=== PATIENT | female | born 1995 | race African-American/Black ===

== ENCOUNTER 2016-12-18 11:21 | Emergency (ER) | payer SELFPAY ==
[~2016-12-18] VITALS: Ht 154.9 cm; Wt 90.0 kg
[~2016-12-18 11:21] MED LIST: CALNTAB PO; FERR325T PO; NORG1TAB28 PO
[2016-12-18 11:23] VITALS: BP 128/74; PULSE 76; RESP 20; TEMP 98.7; O2SAT 98
--- NOTE | 2016-12-18 11:30 | PD ---
Physical Exam Date Seen by Provider: December 18, 2016 Time Seen by Provider: 11:28 Narrative 21 yobf here with c/o good for 1 week. cold symptoms as well. pos for f/c/good/ body aches, n/v/ stool with blood. VSS wating for bed asignment Data Data Last Documented VS Vital Signs Date Time Temp Pulse Resp B/P Pulse Ox O2 Delivery O2 Flow Rate FiO2 12/18/16 11:23 98.7 76 20 128/74 98 Room Air [facility] Medical Record Reviewed: No Supervised Visit with GREG: Rah Latif December 18, 2016 11:30
--- NOTE | 2016-12-18 12:01 | PD ---
HPI Chief Complaint: GI Complaint Time Seen by Provider: 12:00 Travel History International Travel<30 days: No Contact w/Intl Traveler<30days: No Traveled to known affect area: No History of Present Illness HPI 21-year-old female came to the emergency room with history of headache, nausea and vomiting and rectal pain with some dark colored blood in her stool since past 4 days. Patient says all these symptoms are new to her. She is also been having some fever and chills. Early this morning her temperature was 101.5. 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 She has been nauseous but no vomiting. Vital signs were otherwise stable. She is otherwise a healthy person. 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 REPLACED BY [facility] Past Medical History Narrative Medical List of her past medical, surgical, social and family history was reviewed from the nursing note. Diminished Hearing: No Deep Vein Thrombosis: Yes (hx ) Immunizations Current: Yes LMP: 12/13/16 : 3 Para: 1 Ectopic : Yes Dilation and Curettage (D&C): Yes Past Surgical History Section: Yes (x1) Social History Alcohol Use: No Tobacco Use: No Substance Use: No (marijuana) Allergies-Medications (Allergen,Severity, Reaction): Coded Allergies: No Known Allergies (Unverified , 07/17/16) Comments No known drug allergies. Reported Meds & Prescriptions Reported Meds & Active Scripts Active Ortho Tri-Cyclen Lo (Norgestimate-Ethinyl Estradiol) 0.18/0.215/0.25 mg-25 Mcg Tab 1 Tab PO DAILY Ferrous Sulfate 325 Mg Tab 325 Mg PO DAILY Calna ( Vitamin) 1 Tab Tab 1 Tab PO DAILY Narrative Medication List of her home medications reviewed from the nursing note. Review of Systems Except as stated in HPI: all other systems reviewed are Neg Physical Exam Narrative GENERAL: Awake, alert, obese, mild distress SKIN: Focused skin assessment warm/dry. HEAD: Atraumatic. Normocephalic. EYES: Pupils equal and round. No scleral icterus. No injection or drainage. ENT: No nasal bleeding or discharge. Mucous membranes pink and moist. NECK: Trachea midline. No JVD. CARDIOVASCULAR: Regular rate and rhythm. No murmur appreciated. RESPIRATORY: No accessory muscle use. Clear to auscultation. Breath sounds equal bilaterally. GASTROINTESTINAL: Abdomen soft, non-tender, nondistended. Hepatic and splenic margins not palpable. MUSCULOSKELETAL: No obvious deformities. No clubbing. No cyanosis. No edema. NEUROLOGICAL: Awake and alert. No obvious cranial nerve deficits. Motor grossly within normal limits. Normal speech. PSYCHIATRIC: Appropriate mood and affect; insight and judgment normal. Data Data Last Documented VS Vital Signs Date Time Temp Pulse Resp B/P Pulse Ox O2 Delivery O2 Flow Rate FiO2 12/18/16 14:14 98.4 80 16 122/71 99 Room Air Orders Complete Blood Count With Diff (12/18/16 12:17) Basic Metabolic Panel (Bmp) (12/18/16 12:17) Urinalysis - C+S If Indicated (12/18/16 12:17) Ed Urine Pregnancytest Poc (12/18/16 12:17) Sodium Chlor 0.9% 1000 Ml Inj (Ns 1000 M (12/18/16 12:30) Prochlorperazine Inj (Compazine Inj) (12/18/16 12:30) Influenzae A/B Antigen (12/18/16 12:17) Diphenhydramine Inj (Benadryl Inj) (12/18/16 13:45) Labs Laboratory Tests Test 12/18/16 12:40 White Blood Count 9.6 TH/MM3 Red Blood Count 4.49 MIL/MM3 Hemoglobin 10.5 GM/DL Hematocrit 33.0 % Mean Corpuscular Volume 73.6 FL Mean Corpuscular Hemoglobin 23.5 PG Mean Corpuscular Hemoglobin 31.9 % Concent Red Cell Distribution Width 18.7 % Platelet Count 240 TH/MM3 Mean Platelet Volume 9.1 FL Neutrophils (%) (Auto) 60.3 % Lymphocytes (%) (Auto) 28.6 % Monocytes (%) (Auto) 6.6 % Eosinophils (%) (Auto) 3.7 % Basophils (%) (Auto) 0.8 % Neutrophils # (Auto) 5.8 TH/MM3 Lymphocytes # (Auto) 2.8 TH/MM3 Monocytes # (Auto) 0.6 TH/MM3 Eosinophils # (Auto) 0.4 TH/MM3 Basophils # (Auto) 0.1 TH/MM3 CBC Comment AUTO DIFF Differential Comment AUTO DIFF CONFIRMED Urine Color YELLOW Urine Turbidity CLEAR Urine pH 6.5 Urine Specific Wolsey 1.026 Urine Protein TRACE mg/dL Urine Glucose (UA) NEG mg/dL Urine Ketones NEG mg/dL Urine Occult Blood NEG Urine Nitrite NEG Urine Bilirubin NEG Urine Urobilinogen LESS THAN 2.0 MG/DL Urine Leukocyte Esterase NEG Urine RBC 1 /hpf Urine WBC LESS THAN 1 /hpf Urine Squamous Epithelial <1 /hpf Cells Urine Hyaline Casts 1 /lpf Urine Mucus FEW /lpf Microscopic Urinalysis Comment CULT NOT INDICATED Sodium Level 142 MEQ/L Potassium Level 4.2 MEQ/L Chloride Level 107 MEQ/L Carbon Dioxide Level 30.2 MEQ/L Anion Gap 5 MEQ/L Blood Urea Nitrogen 11 MG/DL Creatinine 0.80 MG/DL Estimat Glomerular Filtration 108 ML/MIN Rate Random Glucose 74 MG/DL Calcium Level 8.1 MG/DL [facility] Medical Decision Making Medical Screen Exam Complete: Yes Emergency Medical Condition: Yes Medical Record Reviewed: Yes Differential Diagnosis UTI, , viral illness, influenza Narrative Course 1:44 PM CBC is within normal limits. UA and urine is negative. Influenza is negative as well. Awaiting for the chemistry. Patient is getting a liter IV fluid with Compazine. Patient says that the Compazine is making her anxious. She's been given Benadryl IV. Chemistry is within normal limits she' ll be discharged home. 1:56 PM chemistry is within normal limits. Patient can be discharged home. Procedures EKG Prior to Arrival: No Diagnosis Primary Impression: Viral illness Referrals: Primary Care Physician Departure Forms: Tests/Procedures, Work Release Enter return to work date: December 19, 2016 Additional Instructions: Please return to the ER if the condition worsens or any other new concerns. Take Tylenol/Motrin/ibuprofen/Advil for headache/fever. Lots of fluid. Follow- up with your primary care. Med/Other Pt SpecificInfo: No Change to Meds Disposition: 01 DISCHARGE HOME Condition: Stable Gris Browning MD December 18, 2016 12:01
[2016-12-18] MEDS ORDERED: SODIUM CHLOR 0.9% 1000 ML INJ 1,000 ML IV ONE (12:30)
[2016-12-18] MEDS ORDERED: PROCHLORPERAZINE INJ 10 MG/2 ML VIAL IV PUSH ONE (12:30)
[2016-12-18 13:19] LABS: AUTOMATED NEUTROPHIL # 5.8 TH/MM3 (1.8-7.7); BASOPHIL # 0.1 TH/MM3 (0-0.2); BASOPHIL % 0.8 % (0.0-2.0); EOSINOPHIL # 0.4 TH/MM3 (0-0.4); EOSINOPHIL % 3.7 % (0.0-4.0); LYMPH % 28.6 % (9.0-44.0); LYMPHOCYTE # 2.8 TH/MM3 (1.0-4.8); MEAN CELL VOLUME 73.6 FL (80.0-100.0); MEAN CORPUSCULAR HEMOGLOBIN 23.5 PG (27.0-34.0); MEAN CORPUSCULAR HGB CONC 31.9 % (32.0-36.0); MONO % 6.6 % (0.0-8.0); NEUT % 60.3 % (16.0-70.0); PLATELET COUNT 240 TH/MM3 (150-450); RED BLOOD COUNT 4.49 MIL/MM3 (4.00-5.30); RED CELL DISTRIBUTION WIDTH 18.7 % (11.6-17.2); WHITE BLOOD COUNT 9.6 TH/MM3 (4.0-11.0)
[2016-12-18 13:21] LABS: HEMO FLAGS AUTO DIFF
[2016-12-18 13:32] LABS: BLOOD, URINE NEG (NEG); COMMENT (UR) CULT NOT INDICATED; CULTURE IF INDICATED CULT NOT INDICATED; GLUCOSE,URINE NEG (NEG); HYALINE CAST, URINE 1 /lpf (RARE); KETONE, URINE NEG (NEG); MUCUS URINE FEW /lpf (OCC); NITRITE,URINE NEG (NEG); PH, URINE 6.5 (5.0-8.5); SQUAMOUS EPITHELIAL CELL URINE <1 /hpf (0-5); URINE COLOR YELLOW (YELLW/STRAW)
[2016-12-18 13:42] LABS: BICARBONATE 30.2 MEQ/L (21.0-32.0); POTASSIUM 4.2 MEQ/L (3.5-5.1)
[2016-12-18] MEDS ORDERED: diphenhydrAMINE HCL 50 MG/ML VIAL IV PUSH ONE (13:45)
[2016-12-18 13:51] LABS: SCAN/DIFF AUTO DIFF CONFIRMED
[2016-12-18 14:14] VITALS: BP 122/71; PULSE 80; RESP 16; TEMP 98.4; O2SAT 99
== END 2016-12-18 17:42 | disposition home or self-care (01) ==
LOC: NEPD 11:21
DX: B34.9 Viral infection, unspecified (principal); R51 Headache; R11.2 Nausea with vomiting, unspecified; K92.1 Melena; Z86.718 Personal history of other venous thrombosis and embolism
CPT/HCPCS: 80048; 81001; 84703; 85025; 87804; 96361; 96374; 99284; J0780; J7030